=== PATIENT | female | born 1990 | race Caucasian/White ===

== ENCOUNTER → 2017-12-05 | Outpatient (CLI) | payer OTHER | LOC: FIMAGING 17:21 | PROVIDERS: ATTEND Family Medicine | DX: T83.32XA Displacement of intrauterine contraceptive device, initial encounter (principal) ==

== ENCOUNTER 2017-12-12 05:20 | Observation (INO) | payer OTHER ==
[2017-12-12] MEDS ORDERED: LR 1,000 ML IV ONE (06:35)
[2017-12-12] MEDS ORDERED: LIDOCAINE 1% 2 ML INJ ID PRN (06:35)
[2017-12-12] MEDS ORDERED: LIDOCAINE 1% 300 MG/30 ML SDV ONE (06:43)
[2017-12-12] MEDS ORDERED: BACITRACIN ZINC 14.2 GM OINTTUBE TP ONE (06:43)
[2017-12-12] MEDS ORDERED: CHLORHEXIDINE GLUCONATE 15 ML UDL ONE ×2 (06:44→07:32)
[2017-12-12] MEDS ORDERED: methylPREDNISolone SOD SUCC 125 MG/2 ML VIAL ONE (06:44)
[2017-12-12] MEDS ORDERED: BACITRACIN 50,000 UNITS/10 ML SYR IRR ONE ×2 (06:44→09:27)
[2017-12-12] MEDS ORDERED: PHENYLEPHRINE 0.25% NASAL 15 ML SPRAY ONE (06:44)
[2017-12-12] MEDS ORDERED: OXYMETAZOLINE 30 ML NASAL SPRAY ONE (06:46)
[2017-12-12] MEDS ORDERED: EPINEPHrine 1 MG/ML INJ ONE (06:46)
[2017-12-12] MEDS ORDERED: OXYMETAZOLINE 30 ML NASAL SPRAY EACHNARE PRN (07:00)
--- NOTE | 2017-12-12 07:03 | PDHPUP ---
History & Physical Update H&P update statement: This history and physical update is based on an assessment of the patient which was completed after admission or registration (within 24 hours), but prior to the surgery/procedure. H&P update: H&P reviewed & patient examined
[2017-12-12] MEDS ORDERED: ALBUTEROL 60 PUFFS/8 GM MDI IH PRN (07:06)
[2017-12-12] MEDS ORDERED: ALPRAZolam 0.5 MG TAB PO PRN (07:06)
[2017-12-12] MEDS ORDERED: MIDAZOLAM 2 MG/2 ML VIAL IVP ONE (07:09)
--- NOTE | 2017-12-12 07:13 | PDANEPAE ---
ANE History of Present Illness Jaw Surgery ANE Past Medical History - Cardiovascular History Hx Hypertension: No Hx Arrhythmias: No Hx Chest Pain: No Hx Coronary Artery / Peripheral Vascular Disease: No Hx CHF / Valvular Disease: No Hx Palpitations: No - Pulmonary History Hx COPD: No Hx Asthma/Reactive Airway Disease: Yes Hx Recent Upper Respiratory Infection: No Hx Oxygen in Use at Home: No Hx Sleep Apnea: No Sleep Apnea Screening Result - Last Documented: Negative Pulmonary History Comment: instructed patient to bring inhaler to hospital - Neurologic History Hx Cerebrovascular Accident: No Hx Seizures: No Hx Dementia: No - Endocrine History Hx Diabetes: No Hypothyroid: No Hyperthyroid: No Obesity: no - Renal History Hx Renal Disorders: No - Liver History Hx Hepatic Disorders: No - Neurological & Psychiatric Hx Hx Neurological and Psychiatric Disorders: Yes Neurological / Psychiatric History Comment: ADHD - Cancer History Hx Cancer: No - Congenital Disorder History Hx Congenital Disorders: No - GI History Hx Gastrointestinal Disorders: Yes Gastrointestinal History Comment: IBS. hx of colonoscopy - Other Health History Other Health History: wears glasses - Chronic Pain History Chronic Pain: Yes (jaw) - Surgical History Prior Surgeries: wisdom teeth. colonoscopy x1 ANE Review of Systems Review of systems is: negative Review of Systems: - Exercise capacity METS (RN): 4 METS ANE Patient History - Allergies Allergies/Adverse Reactions: No Known Allergies Allergy (Verified 11/14/17 17:37) - Home Medications Home Medications: ALPRAZolam [Xanax 0.5 MG (*)] 0.5 mg PO DAILY PRN 11/08/17 [Last Taken Unknown] Albuterol [Proventil Inhaler HFA (*)] 1 - 2 puffs IH DAILY PRN 11/08/17 [Last Taken Unknown] Ascorbic Acid [Vitamin C 500 mg (*)] 1,000 mg PO DAILY 11/08/17 [Last Taken Unknown] Ferrous Sulfate [Ferrous Sulf 325 MG (*)] 325 mg PO DAILY 11/08/17 [Last Taken Unknown] Ibuprofen [Motrin (*)] 200 mg PO DAILY PRN 11/08/17 [Last Taken Unknown] methYLPHENIDATE HCL [Ritalin 10mg (*)] 10 mg PO DAILY PRN 11/08/17 [Last Taken Unknown] - NPO status NPO Status: no food or drink >8 hours NPO Since - Liquids (Date): 12/11/17 NPO Since - Liquids (Time): 20:00 NPO Since - Solids (Date): 12/11/17 NPO Since - Solids (Time): 20:00 - Smoking Hx Smoking Status: Current some day smoker - Family Anes Hx Family Hx Anesthesia Complications: none ANE Labs/Vital Signs - Labs Result Diagrams: 12/12/17 07:00 - Vital Signs Blood Pressure: 109/56 Heart Rate: 65 Respiratory Rate: 18 O2 Sat (%): 97 Height: 162.56 cm Weight: 53.524 kg ANE Physical Exam - Airway Neck exam: FROM Mallampati Score: Class 1 Mouth exam: normal dental/mouth exam - Pulmonary Pulmonary: no respiratory distress, no rales or rhonchi - Cardiovascular Cardiovascular: regular rate and rhythym, no murmur, rub, or gallop - ASA Status ASA Status: I ANE Anesthesia Plan Anesthesia Plan: general endotracheal anesthesia Specialized Airway: nasal intubation
[2017-12-12] MEDS ORDERED: SCOPOLAMINE HYDROBROMIDE 1 MG/3 DAYS PATCH TD SCH (07:15)
[2017-12-12 07:18] LABS: PLATELET COUNT 287 10^3/uL (150-400)
[2017-12-12] MEDS ORDERED: fentaNYL 250 MCG/5 ML INJ ONE ×2 (07:19→09:21)
[2017-12-12] MEDS ORDERED: PROPOFOL/EMULSION 500 MG/50 ML BOTTLE IV ONE ×3 (07:19→09:32)
[2017-12-12] MEDS ORDERED: LIDOCAINE 2% 2 ML INJ ONE (07:21)
[2017-12-12] MEDS ORDERED: PETROLAT,WHT/MIN OIL/SOD CHL 3.5 GM OPHT.OINT ONE (07:23)
[2017-12-12] MEDS: AMPICILLIN/SULBACTAM 1.5 GM in NS 50 ML IV SCH ×3 (07:27→19:23)
--- NOTE | 2017-12-12 07:29 | POSTOPPROG ---
Post Op Note Date of Operation: 12/12/17 Surgeon: Tai Becerra Sweatband Decorating Machine Operator: Tucker Becerra Anesthesiologist: Dr. Conway Anesthesia: GET(General Endotracheal) (Nasal intubation) Pre-op Diagnosis: Mandibular hypoplasia Post-op Diagnosis: Same Indication: Malocclusion Procedure: Bilateral Sagittal Split Osteotomy Findings: None Inf/Abcess present in the surg proc area at time of surgery?: No EBL: Minimal (20cc) Total fluids administered: 500ml Complications: none
[2017-12-12] MEDS ORDERED: BUPIVACAINE/EPI 0.5% 30 ML SDV ONE (07:31)
[2017-12-12] MEDS ORDERED: LIDO/EPI 1% **for epidural** 30 ML SDV ONE (07:31)
[2017-12-12] MEDS ORDERED: MIDAZOLAM 2 MG/2 ML VIAL ONE (07:33)
[2017-12-12] MEDS ORDERED: ONDANSETRON 4 MG/2 ML VIAL IVP PRN ×2 (07:36→11:09)
[2017-12-12] MEDS ORDERED: POLYMYXIN B SULFATE 500,000 UNIT/10 ML SYR IRR ONE (07:41)
[2017-12-12] MEDS ORDERED: NS W/ 20 KCl/L 1,000 ML IV SCH (07:45)
[2017-12-12] MEDS ORDERED: ROCURONIUM 100 MG/10 ML VIAL ONE (08:16)
[2017-12-12] MEDS ORDERED: DEXAMETHASONE 4 MG/ML VIAL ONE ×2 (08:17)
[2017-12-12] MEDS ORDERED: ONDANSETRON 4 MG/2 ML VIAL ONE (08:17)
[2017-12-12] MEDS ORDERED: GLYCOPYRROLATE 0.2 MG/1 ML VIAL ONE (08:17)
[2017-12-12] MEDS ORDERED: LABETALOL HCL 5 MG/ML 20 ML MDV ONE (08:19)
[2017-12-12] MEDS ORDERED: CHLORHEXIDINE GLUCONATE 15 ML UDL PO SCH (09:00)
[2017-12-12] MEDS ORDERED: fentaNYL 100 MCG/2 ML INJ IVP PRN (11:09)
[2017-12-12] MEDS ORDERED: ALBUTEROL 3 ML DEYVIAL IH PRN (11:09)
[2017-12-12] MEDS ORDERED: DIAZEPAM 5 MG/ML 1 ML SYR IVP PRN (11:09)
[2017-12-12] MEDS ORDERED: MEPERIDINE 25 MG/0.5 ML AMP IVP PRN (11:09)
[2017-12-12] MEDS ORDERED: HYDROmorphONE/DILAUDID 2 MG/ML INJ IVP PRN (11:09)
[2017-12-12] MEDS ORDERED: NALOXONE HCL 0.4 MG/ML INJ IVP PRN (11:09)
[2017-12-12] MEDS ORDERED: fentaNYL 100 MCG/2 ML INJ ONE (11:16)
--- NOTE | 2017-12-12 11:30 | GOP ---
DATE OF OPERATION: SURGEON: Tai Becerra DDS [employer] DEF[employer] ARTILLERY CREWMEMBER: Tucker Becerra DDS ANESTHESIA: General nasotracheal anesthesia. 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 PROCEDURE PERFORMED: Bilateral sagittal split osteotomy advancement with rigid fixation. FINDINGS: None ESTIMATED BLOOD LOSS: 20 cc. 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 She was seen in the clinic last week where risks, benefits, consequences, complications of the procedure were discussed in detail. Signed and verbal consent was obtained. The patient presented n.p.o. and with an escort today. DESCRIPTION OF PROCEDURE: The patient was brought into the operatory, and following successful nasotracheal intubation, she was prepped and draped in a normal sterile fashion. 10 cc of a mixture of 0.5% Marcaine and 1% lidocaine with 1:100,000 epinephrine was infiltrated into the right and left buccal mucosa bilaterally. A throat screen and bite block were placed. A #15 blade was used to perform a ramus exposing incision on the right side. Bovie electrocautery was used to dissect down to the periosteum. Subperiosteal dissection was performed with a Romain elevator on the medial and lateral aspect of the ramus. The mandibular foramen was identified with a nerve hook. Next, the horizontal osteotomy was performed with a reciprocating saw under irrigation superior to the mandibular foramen. The vertical osteotomy was also performed with the same guarded saw. The sagittal portion of the osteotomy was performed with an unguarded reciprocating saw under irrigation. Next, a left mandibular ramus exposing incision and dissection were performed in an identical fashion to the right side. The mandibular foramen was identified with a nerve hook, and the vertical, horizontal, and sagittal osteotomy were performed in the same fashion, being mindful of the inferior alveolar nerve. Next, attention was turned back to the right mandible where an osteotome and mallet were used to redefine the osteotomy, and a Ryan dairy equipment installer and inferior border splitter were used to complete the sagittal split osteotomy. The inferior alveolar nerve was noted to be trapped in the proximal segment at the very superior aspect of the osteotomy and was dissected free. The inferior alveolar nerve did not appear to be damaged. Next, the left mandibular sagittal split osteotomy was completed in the same fashion with the osteotomes, Ryan dairy equipment installer, and inferior border splitter. The inferior alveolar nerve was not trapped in the proximal segment on the left side. The distal segments of the mandibular osteotomy were mobilized, ensuring that the medial pterygoid and masseter muscle were stripped from the inferior border of the segment. Sharp bone marrow and ESTEVAN fragments from the distal segment were removed so they did not injure the ESTEVAN during fixation. The occlusal splint was placed and wired into the dentition. The patient was placed in maxillomandibular fixation with 26g wires. The right proximal segment was passively seated into the infratemporal fossa, and three Synthes 2 mm bicortical screws were used to secure the proximal and distal segment. The screws were 13 mm, 11 mm, and 9 mm from distal to proximal. The exact same fixation was performed on the left side , making sure that the proximal segment was passively seated. The patient was released from IMF, and the occlusion was verified. Throat screen and bite block were removed. An OG tube was used to evacuate the patient's stomach contents. The right and left ramus exposing incision was closed with 3-0 Vicryl running locking suture. The patient was placed into intermaxillary fixation with 2 orthodontic elastics. 10 cc of a mixture of 0.5% Marcaine and 1% lidocaine with 1:100,000 epinephrine was infiltrated into the right and left buccal mucosa bilaterally. The patient was allowed to awake from anesthesia and transferred to the PACU in stable condition. FLUIDS: 500 cc. DISPOSITION: The patient will be admitted for 23-hour observation. She has already been given written and verbal postoperative instructions as well as her prescriptions. /[id number]/MODL MTDD
[2017-12-12] MEDS ORDERED: ALBUTEROL 3 ML DEYVIAL ONE (12:03)
[2017-12-12] MEDS: HYDROCOD/APAP 7.5/325 IN 15ML UDCUP PO PRN ×2 (12:48→16:28)
[2017-12-12] MEDS: DEXAMETHASONE 4 MG/ML VIAL IVP SCH ×2 (14:00→20:23)
--- NOTE | 2017-12-12 19:17 | SOAPPROG ---
SOAP Progress Note Assessment/Plan: Assessment: Anastacia is POD#0 from [facility]. She is doing well. Plan: The patient has elected to be discharged tonight. Again reviewed post operative instruction. Will give an additional dose of ABX, steroid and Toradol prior to discharge. She will be seen in clinic tomorrow for x-rays 12/12/17 19:16 12/12/17 19:33 Subjective: Anastacia is POD#0 from [facility]. She states her pain is well controlled with oral pain medication, she is ambulating, taking good PO and has voided. Objective: Vital Signs Temp Pulse Resp BP Pulse Ox 36.3 C 77 16 109/60 96 12/12/17 16:00 12/12/17 16:00 12/12/17 16:00 12/12/17 16:00 12/12/17 16:00 Laboratory Results 12/12/17 07:00 12/12/17 07:00 12/11/17 12/12/17 12/13/17 05:59 05:59 05:59 Intake Total 1437 Output Total 20 Balance 1417 Mild V3 hypesthesia, orthodontic elastics in place, occlusion is stable and repeatable. sutures C/i/hemostatic. swelling as expected. NR, RR, CTAB - Time Spent With Patient Time Spent With Patient: 30 minutes - Pending Discharge Pending Discharge Within 24 Hours: Yes Pending Discharge Within 48 Hours: No Pending Discharge Date: 12/13/17 Pending Discharge Time: 11:00 ICD10 Worksheet Patient Problems: Problems Problem Status Onset Mandibular hypoplasia Acute - ICD10 Problem Qualifiers (1) Mandibular hypoplasia
[2017-12-12] MEDS ORDERED: KETOROLAC 30 MG/1 ML SDV IVP ONE (19:39)
[2017-12-12 20:53] VITALS: BP 115/63
== END 2017-12-12 20:46 | disposition home or self-care (01) ==
LOC: F3N 05:20 → F3E 12:32
PROVIDERS: ADMIT Dentist Oral and Maxillofacial Surgery; ATTEND Dentist Oral and Maxillofacial Surgery
DX: M26.04 Mandibular hypoplasia (principal); M26.4 Malocclusion, unspecified
CPT/HCPCS: 21196; G0378; C1713; J0171; J0295; J1100; J1885; J2250; J2405; J2704; J2930; J3010; J7613